=== PATIENT | male | born 1935 | race Caucasian/White ===

== ENCOUNTER → 2017-10-13 | Outpatient (CLI) | payer MEDICARE, BC ==
[~2017-10-13] MED LIST: ALLO300T PO; COLC0.6T37 PO; DILT120C9 PO; DOXA2TAB9 PO; ENOX100S5 SQ; ERGO500017 PO; FENO160T PO; FERR140T2 PO; HYDR12.58 PO; METF500T4 PO; METO50TA82 PO; OXYC-307 PO; OXYC5TAB3 PO; POLY17PO5 PO; VALS320T2 PO; VIT D PO; WARF10TA6 PO-COUM
== END | disposition home or self-care (01) ==
LOC: CFH 10:37
PROVIDERS: ATTEND Internal Medicine Nephrology
DX: N28.1 Cyst of kidney, acquired (principal); I12.9 Hypertensive chronic kidney disease with stage 1 through stage 4 chronic kidney disease, or unspecified chronic kidney disease; E11.22 Type 2 diabetes mellitus with diabetic chronic kidney disease; N18.3 Chronic kidney disease, stage 3 (moderate); E83.52 Hypercalcemia; H91.90 Unspecified hearing loss, unspecified ear; E78.5 Hyperlipidemia, unspecified; D09 Carcinoma in situ of other and unspecified sites; M62.81 Muscle weakness (generalized)
CPT/HCPCS: 76770